=== PATIENT | male | born 1970 | race Caucasian/White ===

== ENCOUNTER → 2017-10-30 13:05 | Outpatient (CLI) | payer OTHER, SELFPAY ==
--- NOTE | 2017-10-30 13:14 | RAD_ITS ---
STUDY: X-RAY - LEFT SHOULDER REASON FOR EXAM: Left shoulder pain. TECHNIQUE: 4 view(s) of the shoulder. COMPARISON: None. FINDINGS: Normal glenohumeral articulation. Normal acromioclavicular joint with incidental vacuum phenomenon in the joint. Normal acromion. Normal humeral head and visualized proximal humerus. The soft tissue structures are unremarkable. Normal visualized pulmonary apex. RAD/Shoulder min 2 Views IMPRESSION: Unremarkable x-ray examination of the left shoulder. Electronically Signed: Terrance Andrew MD at 14:21 EDT Tel , Service support ,
--- NOTE | 2017-10-30 13:14 | RAD_ITS ---
STUDY: X-RAY - CERVICAL SPINE REASON FOR EXAM: Male, 47 years old. Left shoulder pain TECHNIQUE: 5 view(s) of the cervical spine were obtained. COMPARISON: None FINDINGS: Normal anterior atlantoaxial articulation. Normal odontoid process. There is straightening of the normal cervical lordosis. There is multi-level endplate spondylosis. There is multi-level degenerative disc disease with multilevel disc space narrowing. There is multi-level osseous foraminal stenosis. The soft tissue structures are unremarkable. There is no demonstrated fracture of the cervical spine. RAD/Cerv Spine 4 or 5 Views IMPRESSION: No acute abnormality. Moderate multilevel degenerative changes. Electronically Signed: Andre Bianchi MD at 19:10 EDT , Service support ,
== END ==
PROVIDERS: Family Provider Family Medicine; PCP Family Medicine; Visit Provider Family Medicine
DX: S44.90XA Injury of unspecified nerve at shoulder and upper arm level, unspecified arm, initial encounter (principal)
CPT/HCPCS: 72050; 73030

== ENCOUNTER → 2017-11-13 07:02 | Outpatient (CLI) | payer OTHER, SELFPAY ==
--- NOTE | 2017-11-13 07:16 | MRI_ITS ---
STUDY: MRI LEFT BRACHIAL PLEXUS WITHOUT CONTRAST REASON FOR EXAM: Male, 47 years old. Neuropraxia left upper extremity TECHNIQUE: Standardized orthogonal imaging in all three planes were obtained with fat water weighted pulse sequences. The study was performed without gadolinium enhancement. COMPARISON: None. FINDINGS: No demonstrated abnormality in the course of the roots, trunks, divisions or cords of the brachial plexus. There is no demonstrated neural enlargement or neural edema of the visualized brachial plexus. Normal visualized subclavian artery and vein. Normal muscles of the rotator cuff. . Degenerative changes of both acromioclavicular joints. A metallic tack is in the right femoral head. Both glenohumeral articulations are normal. There are degenerative changes C4-C5 C5-C6 and C6-C7 disc spaces. Normal visualized pulmonary apex. MRI/Chest without Contrast IMPRESSION: No evidence of any brachial plexopathy. Degenerative changes of the acromioclavicular joints. Degenerative changes at C4-C5, C5-C6 and C6-C7. No fractures Electronically Signed: Inderjit Harding MD at 6:14 EDT Tel , Service support ,
--- NOTE | 2017-11-13 07:43 | RAD_ITS ---
STUDY: X-RAY - ORBITS REASON FOR EXAM: Male, 47 years old. This study is being performed as a clearance examination for exclusion of orbital metal, prior to the performance of an MRI examination. TECHNIQUE: 2 view(s) of the orbits were obtained. COMPARISON: None. FINDINGS: Normal bilateral orbits without a metallic orbital foreign body. Normal visualized facial bones. Normal paranasal sinuses. The soft tissue structures are unremarkable. RAD/Orbits for Foreign Body IMPRESSION: No demonstrated metallic orbital foreign body. The patient is cleared for an MRI examination. Electronically Signed: Mason Houston MD at 8:09 EDT Tel [phone], Service support ,
== END ==
PROVIDERS: Family Provider Family Medicine; PCP Family Medicine; Visit Provider Family Medicine
DX: S44.90XA Injury of unspecified nerve at shoulder and upper arm level, unspecified arm, initial encounter (principal)
CPT/HCPCS: 70030; 71550

== ENCOUNTER → 2021-09-12 | Outpatient (CLI) | payer BC, SELFPAY ==
--- NOTE | 2021-09-12 12:37 | RAD_ITS ---
STUDY: X-RAY - LUMBAR SPINE REASON FOR EXAM: Male, 51 years old. BACK PAIN TECHNIQUE: 5 view(s) of the lumbar spine were obtained. COMPARISON: None FINDINGS: There is straightening of the normal lumbar lordosis. There is no substantial scoliosis. There is a normal alignment of the vertebrae. . Mild degree of disc space narrowing and spondylosis at the L4-L5 and L5-S1 levels. There is mild atherosclerotic calcification of the abdominal aorta without a demonstrated aneurysm. RAD/L/S Spine Min 4 Views IMPRESSION: Mild degree of disc space narrowing and spondylosis at the L4-L5 and L5-S1 levels. Straightening of the normal lumbar lordosis. Electronically Signed: Mason Houston MD at 13:52 EDT ,
== END | disposition home or self-care (01) ==
PROVIDERS: PCP Family Medicine; Referring Provider Family Medicine; Visit Provider Family Medicine
DX: M54.9 Dorsalgia, unspecified (principal)
CPT/HCPCS: 72110

== ENCOUNTER → 2021-10-11 | Outpatient (CLI) | payer BC, SELFPAY ==
--- NOTE | 2021-10-11 09:24 | RAD_ITS ---
STUDY: X-RAY - ORBITS REASON FOR EXAM: Male, 51 years old. Foreign body TECHNIQUE: JUAREZ view(s) of the orbits were obtained. COMPARISON: 11/13/2017. FINDINGS: Normal bilateral orbits without a metallic orbital foreign body. Normal visualized facial bones. Normal paranasal sinuses. The soft tissue structures are unremarkable. RAD/Orbits for Foreign Body IMPRESSION: No demonstrated metallic orbital foreign body in the 2 provided Juarez'' view and unchanged when compared to 11/13/2017. The patient is cleared for an MRI examination. Electronically Signed: Hitesh Mims MD at 9:37 EDT ,
== END | disposition home or self-care (01) ==
LOC: MTRAD 09:21
PROVIDERS: PCP Family Medicine; Referring Provider Family Medicine; Visit Provider Family Medicine
DX: M99.53 Intervertebral disc stenosis of neural canal of lumbar region (principal)
CPT/HCPCS: 70030

== ENCOUNTER → 2022-06-14 | Outpatient (CLI) | payer BC, SELFPAY ==
--- NOTE | 2022-06-14 09:45 | RAD_ITS ---
INDICATION: R HIP PAIN EXAMINATION/TECHNIQUE: X-RAY - XR Right Hip Unilateral with Pelvis when performed; 3 Views COMPARISON: None. FINDINGS: PELVIC BONES: No displaced fracture, destructive or sclerotic lesions. Note that overlapping bowel shadows may however obscure fine detail. Sacroiliac joints are unremarkable. No widening of the pubic symphysis. HIPS: The articular structures are unremarkable. No displaced fracture seen in this frontal view. SOFT TISSUES: No soft tissue swelling or gas. RAD/HIP, UNI W/ Pelvis 2-3 Views IMPRESSION: No evidence of displaced pelvic or hip fracture. Electronically Signed: John Lima DO at 23:18 EDT Reading Location ID and State: [facility] / [place] Tel [phone], Service support ,
== END | disposition home or self-care (01) ==
LOC: RAD 09:38
PROVIDERS: PCP Family Medicine; Referring Provider Anesthesiology Pain Medicine; Visit Provider Anesthesiology Pain Medicine
DX: M25.551 Pain in right hip (principal)
CPT/HCPCS: 73502

== ENCOUNTER 2023-07-14 07:07 | Outpatient (CLI) | payer BC, SELFPAY ==
--- NOTE | 2023-07-14 07:17 | MRI_ITS ---
STUDY: MRI RIGHT HIP REASON FOR EXAM: Male, 52 years old. Pain -- rule out AVN TECHNIQUE: Localizing images and coronal STIR performed. The patient was unable to tolerate further imaging. COMPARISON: X-ray June 25, 2023 FINDINGS: Normal hip joint without articular joint space narrowing. There is moderate joint effusion. Normal acetabulum. Normal labrum. There is avascular necrosis of the right femoral head with mild flattening. There is marrow edema of the femoral head and neck, series 4 images 15 through 19. Normal gluteus minimus, medius and iliopsoas tendons and distal insertions. There is no trochanteric, iliopsoas or iliopectineal bursitis. Normal superior and inferior pubic rami. Normal pubic symphysis. Normal ischial tuberosity. Normal origin of the hamstring tendons. Normal visualized iliac wing, sacroiliac joint, and sacral ala. Normal visualized soft tissue structures of the pelvis. MRI/Lower Ext Joint Only (Routine) IMPRESSION: Limited exam with only coronal STIR images. Avascular necrosis of the right femoral head with stress fracture/injury of the femoral head and neck. Electronically Signed: Jose Mcedrmott MD at 11:03 EDT ,
== END 2023-07-14 23:59 | disposition home or self-care (01) ==
LOC: MRI 07:09
PROVIDERS: PCP Family Medicine; Referring Provider Orthopaedic Surgery; Visit Provider Orthopaedic Surgery
DX: M25.551 Pain in right hip (principal)
CPT/HCPCS: 73721

== ENCOUNTER → 2023-10-25 | Outpatient (CLI) | payer BC, SELFPAY ==
--- NOTE | 2023-10-25 06:50 | CT_ITS ---
CT BILATERAL HIPS AND KNEES WITH 3-D IMAGING CLINICAL INDICATION: Templating for right MARY TECHNIQUE: Axial CT images of the bilateral lower extremity (including bilateral hips and bilateral knees) was performed without IV contrast material. Coronal and sagittal reformats were provided. The protocol utilizes one or more of the following dose reduction techniques: automated exposure control, adjustment of mA and/or kV according to patient size, and/or use of iterative reconstruction technique. RADIATION DOSAGE (If Supplied By Facility): CTDIvol = ( 12.47 ) mGy, DLP = ( 892.72 ) mGycm COMPARISON: Pelvis and right hip radiographs dated 10/03/2023. FINDINGS: Bones: There is stable mild degenerative arthrosis of the hip joints bilaterally with mild osteoarthritic spurring and subchondral cyst formation of the acetabula bilaterally. There is linear geographic and serpiginous sclerosis of the right femoral head, compatible with avascular necrosis. There is subtle flattening of the anterior-superior aspect of the right femoral head, compatible with subchondral collapse. Normal knee joints bilaterally. Osseous structures are otherwise intact without evidence of fracture or dislocation. No lytic or blastic osseous masses. Soft Tissues: The deep soft tissue structures are unremarkable. The superficial soft tissues are unremarkable without evidence of edema, hematoma, or foreign body. CT/Extremity Lower without Contra IMPRESSION: Stable mild degenerative arthrosis of the hip joints bilaterally. Avascular necrosis of the right femoral head, with subtle subchondral collapse of the anterior-superior aspect of the right femoral head. Electronically Signed: Cyrus Hopson MD at 8:08 EDT ,
== END | disposition home or self-care (01) ==
PROVIDERS: PCP Family Medicine; Referring Provider Orthopaedic Surgery; Visit Provider Orthopaedic Surgery
DX: M87.051 Idiopathic aseptic necrosis of right femur (principal)
CPT/HCPCS: 73700

== ENCOUNTER 2023-11-06 08:15 | Day surgery (SDC) | payer BC, SELFPAY ==
--- NOTE | 2023-11-02 07:27 | EKG12_ITS ---
Test Reason : PREOP Blood Pressure : / mmHG Vent. Rate : 068 BPM Atrial Rate : 068 BPM P-R Int : 148 ms QRS Dur : 076 ms QT Int : 368 ms P-R-T Axes : 071 042 033 degrees QTc Int : 391 ms Normal sinus rhythm Normal ECG Confirmed by Hunter Roth ([id number]), non linear editor KEN AZEVEDO ([id number]) on 11/05/2023 9:58:55 AM Referred By: Nelson Jenkins Confirmed By:Hunter Roth
[2023-11-02 08:38] LABS: Absolute Neutrophil Count 5.9 X10^3/uL (2.0-7.7); Basophil# 0.03 X10^3/uL; Basophil% 0.3 % (0-1); Eosinophil# 0.11 X10^3/uL; Eosinophils% 1.2 % (0-5); Hematocrit 44.5 % (40-54); Hemoglobin 14.9 g/dL (13.0-16.5); Lymphocyte % 22.5 % (19-41); Mean Corp Hgb Conc 33.5 g/dL (32-36); Mean Corpuscular Hgb 31.4 pg (27.0-32.0); Mean Corpuscular Volume 93.9 fL (80-94); Mean Platelet Vol. 10.4 fl (6.2-12.0); Monocyte# 0.81 X10^3/uL; Monocyte% 9.1 % (0-10); NRBC Flagged by Analyzer 0 % (0-5); Neutrophil % 66.5 % (47-70); Platelet Count 302 K/mm3 (150-450); RBC Distribution Width CV 12.1 % (11.6-14.6); RBC Distribution Width SD 42.2 fl (35.1-43.9); Red Blood Count 4.74 M/mm3 (4.6-6.2); White Blood Count 8.9 K/mm3 (4.4-11.0)
[2023-11-02 08:47] LABS: Prothrombin Time (Protime)PT. 13.3 SECONDS (11.7-14.9)
[2023-11-02 08:48] LABS: Partial Thromboplast Time 27.7 Seconds (24.1-36.2)
[2023-11-02 08:59] LABS: Anion Gap 5 (5-15); BUN 15 mg/dL (7-18); BUN/Creat Ratio 18.6 RATIO (10-20); Calcium,Total 9.4 mg/dL (8.5-10.1); Chloride 104 mmol/L (98-107); Creatinine, Serum 0.81 mg/dL (0.70-1.30); EST Glomerular Filtration Rate 107 mL/min (>60); Est Glom Filt Rate - Afr Amer 130 mL/min (>60); Glucose 98 mg/dL (74-106); Potassium 4.3 mmol/L (3.5-5.1); Sodium Level 136 mmol/L (136-145)
[2023-11-02 09:01] LABS: Hemoglobin A1c 5.5 % (3.8-5.6)
[2023-11-02 09:09] LABS: Magnesium 1.8 mg/dL (1.6-2.6)
[2023-11-03 11:15] LABS: Fructosamine 204 umol/L (0-285)
[2023-11-06] VITALS (16 sets, daily range): BP systolic 84–151; BP diastolic 60–122; PULSE 52–94; RESP 8–98; TEMP 35.9–36.6; O2SAT 96–100; BMI 23.1
--- NOTE | 2023-11-06 | HIP_PTH ---
PATIENT: ROGELIO YOUSSEF LOC: [facility] [place] U#:[id number] AGE/SX: 53/M ROOM: RE11/06/[address]: Dr. Nelson Jenkins DO : 1970 BED: DIS: 11/06/2023 SPEC #: [id number] RECD: 11/06/23 14:19 STATUS: EDMUNDO REWilliam #: [id number] JYOTI: 11/06/23 00:[address]: Nelson Jenkins DEPT: SURGICAL PATHOLOGY RECD BY: Norman Schreiber ENTERED: 11/06/23 14:20 SP TYPE: TOTAL HIP OTHR DR: Dr. Gen Edge MD Tissues: Hip, NOS Procedures: Decalcification bone/plaque Surgery Specimen Level IV HEADER OPERATION: Right total hip replacement robotic arm assist PRE-OP DIAGNOSIS: Avascular necrosis of right femur TISSUE SUBMITTED: Bone and tissue right hip MICROSCOPIC DIAGNOSIS Bone and tissue of right hip, total hip resection: Consistent with avascular necrosis and degenerative joint changes.. AM:mr 11/09/2023 MICROSCOPIC DESCRIPTION Slides are reviewed. GROSS DESCRIPTION Received is one container labeled with the patient's name and designated bone and soft tissue right hip. The specimen consists of a pedro femoral head (with portion of femoral neck). The femoral head measures 5.0 x 5.0 x 4.0 cm (and the femoral neck measures 1.0 cm in length.) Focal area of pitting is noted. Sections reveal a wedge shaped yellowish area underneath the pitting area measuring 3.0 x 2.05cm overlying cartilage is from the femoral head in this area. The articular surface is smooth. Also present in the specimen container are multiple irregular fragments of bone reamings and pink-yellow soft tissue measuring in aggregate 7.5 x 6.5 x 2.0 cm. Attached to the top of the femoral head is a piece of soft tissue measuring 2.0 x 1.0 x 0.3cm. Senior Manager sections are submitted in two cassettes as follows: 1 - soft tissue attached to femoral head, 2&3 - bone after decalcification. / HESHAM. 11/06/2023 TC:5 CPT: 99033, 46408
[2023-11-06] MEDS: Magnesium 2 GM for ERAS IV (08:50)
[2023-11-06] MEDS: Lactated Ringers 1,000 ML 999 ML IV (08:50)
[2023-11-06] MEDS: Scopolamine 1mg/72hr Patch 1 PATCH TD (08:51)
[2023-11-06 09:02] LABS: Bedside Glucose 102 mg/dL (74-106)
[2023-11-06] MEDS: Acetaminophen 500 MG Tablet 1000 MG PO (09:06)
[2023-11-06] MEDS: Gabapentin 600 MG Tablet PO (09:06)
[2023-11-06] MEDS: Celecoxib 200 MG Capsule 400 MG PO (09:06)
--- NOTE | 2023-11-06 09:09 | PCM.PRE.AN2 ---
ASA Classification* ASA Classification ASA Classification: 2 Assessment & Plan Anesthesia* Anesthesia Assessment Anesthesia Assessment: Discussed sedation and/or anesthesia options, risks, benefits, and alternatives with patient/parents/legal guardian/POA. Questions invited. The patient/parents/legal guardian/POA seems to understand and agrees to proceed with anesthesia plan. Reviewed the physical assessment, medical history, allergy history and patient home medications list prior to surgery/procedure/anesthetic and documented any changes. Performed airway and anesthesia risk assessments. Anesthesia Type Anesthesia Type: Spinal History Source History Obtained from:: Patient and Chart Anesthesia Focused Assessment* Temperature: 98 F Pulse Rate: 91 Blood Pressure: 125/83 Respiratory Rate: 12 Pulse Ox: 97 Oxygen Delivery Method: Room Air Airway Assessment Mouth opens: >3 cm Mallampati Score: II Teeth Condition: Intact Neck Range of motion (ROM): Full ROM Focused Labs Anesthesia Preop lab: CBC WBC 8.9 K/mm3 (4.4-11.0) 11/02/23 07:50 RBC 4.74 M/mm3 (4.6-6.2) 11/02/23 07:50 Hgb 14.9 g/dL (13.0-16.5) 11/02/23 07:50 Hct 44.5 % (40-54) 11/02/23 07:50 Plt Count 302 K/mm3 (150-450) 11/02/23 07:50 CHEMISTRY Potassium 4.3 mmol/L (3.5-5.1) 11/02/23 07:50 Sodium 136 mmol/L (136-145) 11/02/23 07:50 Magnesium 1.8 mg/dL (1.6-2.6) 11/02/23 07:50 BUN 15 mg/dL (7-18) 11/02/23 07:50 Creatinine 0.81 mg/dL (0.70-1.30) 11/02/23 07:50 Glucose 98 mg/dL (74-106) 11/02/23 07:50 POC Glucose 102 mg/dL (74-106) 11/06/23 08:42 COAG PT 13.3 SECONDS (11.7-14.9) 11/02/23 07:50 Pre-Assessment Diagnosis/Proposed Procedure Planned Operative Procedure(s): (R) ERAS, Right Total Hip Replacement Robotic Arm Assisted Anesthesia History Anesthesia History - central sterilization technician: Anesthesia History - central sterilization technician Hx Hospitalization No 10/24/23 10:21 Any Problems With Anesthesia No 10/24/23 10:21 Cholinesterase deficiency No 10/24/23 10:21 You/Your Family Experience No 10/24/23 10:21 fever (hyperthermia) with Relationship Recent Exposure to Contagious No 11/06/23 09:02 Disease Does patient have nerve No 10/24/23 10:21 stimulator Patient instructed to have device shut off --Does patient have Pacemaker No 11/06/23 09:02 or ICD? When Was Last Pacemaker Check QUESTION #4 FULL TEXT: You/Your Family Experience fever (hyperthermia) with Anesthesia Last Oral Intake Last Oral intake: Last Oral Intake NPO since 07:30 11/06/23 09:02 Meds taken in AM with sips of No 11/06/23 09:02 water? Meds patient instructed to take am of surgery Any additional information?: Yes NPO since: 07:30 (Patient had some of his Ensure at 7:30 AM.) PONV PONV - central sterilization technician: PONV - central sterilization technician Female No 10/24/23 10:21 HX of Motion Sickness No 10/24/23 10:21 HX of N/V After Surgery No 10/24/23 10:21 Non-Smoker No 10/24/23 10:21 Duration of Surgery greater Yes 10/24/23 10:21 than 60 minutes Number of Risk Factors 1 10/24/23 10:21 PONV Score Low Risk 10/24/23 10:21 Height & Weight Height & Weight: Anesthesia: Height & Weight Height 5 ft 8 in 11/06/23 09:02 Weight: 69 kg 11/06/23 09:02 Body Mass Index (BMI) 23.1 11/06/23 09:02 Respiratory Assessment Respiratory Assessment - central sterilization technician: Respiratory Tract Infection Hx - central sterilization technician Hx Respiratory Tract Infection No 10/24/23 10:21 STOP Sleep Apnea STOP Sleep Apnea - central sterilization technician: STOP Sleep Apnea - central sterilization technician Hx Hypertension No 10/24/23 10:21 Hx Sleep Apnea No 10/24/23 10:21 CPAP BIPAP Do you snore loudly (louder No 10/24/23 10:21 than talking or can be heard Do you often feel tired/ No 10/24/23 10:21 fatigued/ sleepy during daytime? Has anyone observed you stop No 10/24/23 10:21 breathing during sleep? STOP Results Negative 10/24/23 10:21 QUESTION #5 FULL TEXT : Do you snore loudly (louder than talking or can be heard through closed doors)? 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 Specify any problems Hx of Preganancy in last 3 N/A 10/24/23 10:21 Months Nurse Filling Out Transfusion NBUCHER 10/24/23 10:21 & Questions: Date: 10/24/23 10/24/23 10:21 Time: 10:22 10/24/23 10:21 Patient unable to answer at this time (ie. confused, unrespo /Reproduction History /Reproductive History - central sterilization technician: /Reproductive Hx- central sterilization technician Hx Now No 10/24/23 10:21 Gestational Age (in weeks): EDC: Hx Hx Para Hx Section SAB No 10/24/23 10:21 Active Medications Active Medications: Current Medications Generic Name Dose Route Start Last Admin Trade Name Freq PRN Reason Stop Dose Admin Acetaminophen 1,000 mg 11/06/23 10:55 11/06/23 09:06 Acetaminophen 500 Mg Tablet PO 11/06/23 10:56 1,000 mg X1 ONE Administration Celecoxib 400 mg 11/06/23 10:55 11/06/23 09:06 Celecoxib 200 Mg Capsule PO 11/06/23 10:56 400 mg X1 ONE Administration Dexamethasone Sodium Phosphate 10 mg 11/06/23 10:55 Dexamethasone 10 Mg/Ml Vial IV 11/06/23 10:56 X1 ONE Gabapentin 600 mg 11/06/23 10:55 11/06/23 09:06 Gabapentin 600 Mg Tablet PO 11/06/23 10:56 600 mg X1 ONE Administration Lactated Ringer's 1,000 mls @ 999 mls/hr 11/06/23 10:55 11/06/23 08:50 IV 11/06/23 11:55 999 mls/hr .Q1H1M NELIA Administration Cefazolin Sodium 2 gm/ Sodium 110 mls @ 150 mls/hr 11/06/23 10:55 Chloride IV 11/06/23 11:38 PREOP ONE Tranexamic Acid 2,000 mg/ 120 mls @ 660 mls/hr 11/06/23 10:55 Sodium Chloride IV 11/06/23 11:05 X1 ONE Lactated Ringer's 1,000 mls @ 125 mls/hr 11/06/23 10:55 IV 11/06/23 18:54 .Q8H NELIA Magnesium Sulfate 2 gm/ 104 mls @ 208 mls/hr 11/06/23 10:55 11/06/23 08:50 Dextrose IV 11/06/23 11:24 208 mls/hr X1 ONE Administration Insulin Human Lispro 1 - 6 unit 11/06/23 10:55 Insulin Lispro 100 Unit/Ml Insuln.Pen SC Q4H PRN PRN BG>/= 180, SEE PROTOCOL Protocol Scopolamine HBr 1 patch 11/06/23 10:55 11/06/23 08:51 Scopolamine 1mg/72hr Patch TD 11/06/23 10:56 1 patch X1 ONE Administration PFSH Medical History Wears glasses Alcohol use Marijuana use Crutches as ambulation aid Electronic cigarette use Former smoker Acute arthritis Home Medications ?Medication ?Instructions ?Recorded ?Last Taken ?Type NK 10/24/23 Unknown History Allergy/AdvReac Type Severity Reaction Status Date / Time oxaprozin (From Daypro) Allergy Bleeding Verified 11/06/23 09:01 Surgical History History of wisdom tooth extraction H/O arthroscopy of shoulder Social History Smoking Status: Former smoker Tobacco: How many years used: 15 alcohol intake: current alcohol intake frequency: 0-2 drinks per day Alcohol type: beer Review of Systems (Anesthesia) ROS Narrative System reviewed and no additional complaints, except as documented.
--- NOTE | 2023-11-06 09:26 | PCM.HP.BLA ---
History and Physical Date of Admission: 11/06/23 [facility] [address] [place] [address] OFFICE VISIT Date of Service: 10/03/23 MR#: [id number] Acct: [id number] Name: ROGELIO YOUSSEF Rep #: [id number] : 1970 Provider: Dr. Nelson Jenkins, Age/Sex: 53/M Location[place] [facility] [place] Status: Signed Intake Vital Signs 06/25/2407:53 Height 5 ft 8 in Intake Visit Reasons: RIGHT HIP Is patient in pain?: Yes Allergies oxaprozin (From Daypro) Allergy (Verified 10/03/23 09:02) Bleeding Medications ?Medication ?Instructions ?Recorded ?Confirmed ?Type alendronate 70 mg tablet 70 mg PO QWEEK #12 tabs 07/20/23 10/03/23 Rx PFSH Medical History Acute arthritis Surgical History H/O arthroscopy of shoulder Social History Smoking Status: Current every day smoker Tobacco: How many years used: 15 alcohol intake: current alcohol intake frequency: 0-2 drinks per day Alcohol type: beer HPI RIGHT HIP Details: This documentation accurately reflects the service provided and the decisions made by me, Dr. Nelson Jenkins, 10/03/23 0750. Part of today?s visit was documented by [ ], acting as scribe. ROGELIO YOUSSEF is a 53 year old M here today for right hip AVN. 07/20/2023 visit: patient has known AVN of riht hip; MRI was reviewed with the patient he did have early stage IV as there was flattening of the femoral head with a large lesion size he wished to proceed at that time with nonweightbearing with crutches NSAIDs and bisphosphonates we did discuss total hip arthroplasty as a likely outcome he was given Celebrex as he had a history of GI upset from other NSAIDs and bleeding gums from oxaprozin. 08/29/23 visit: Patient had been nonweightbearing since the previous visit continues to use crutch. When he puts weight on the hip he feels his pain in the same spot. He continues Celebrex and alendronate X-rays were reviewed without significant change he has had some improvement with protected weightbearing however there are still significant pain once again we reviewed surgical option of total hip arthroplasty. He wished to proceed with another 6 weeks of nonweightbearing treatment with continued NSAID and alendronate. With plans that if he did not improve to discuss total hip arthroplasty as a neck step 10/03/2023 visit: Patient continues to have right hip pain. Patient notes that he has increased pain with changing directions. Patient notes that he has pain into his groin and posterior hip. He has been using crutches until about 3 days ago. Patient notes that he was doing well until he started weightbearing. Patient denies any pain medication and he has stomach cramps with pain medication. He smokes marijuana every once in awhile. He notes that every once in awhile he has right foot numbness. Ortho Exam General General: Yes no acute distress Neurologic: Yes alert and Yes oriented x3 Psychologic: Yes reasonable and appropriate Right Hip Skin: Yes CDI, No Ecchymosis, No soft tissue swelling and No Erythema internal rotation @90 degree flexion: 18 degrees external rotation @90 degree extension: 70 degrees Special Tests: No hyperflexion normal, Yes C sign, Yes TTP Greater sciatic notch, Yes FADER and Yes Illiotibial band tenderness Homans Sign: No HIP: pain in upper groin & greater sciatic notch He does have some mild trochanteric tenderness. IR with pain ER with reproducable pain Reproducible pain with resisted hip flexion with some weakness passive knee extension also causes reproduction of his pain 5/5 plantarflexion dorsiflexion 2/4 pedal pulse Intact sensation to light touch throughout the extremity Head: Normocephalic Atraumatic Chest: symmetrical rise, non-labored breathing, no audible wheeze Abdomen: no guarding, non-rigid Supplemental Info 10/03/2023 x-ray right hip: Unchanged 07/14/2023 MRI right hip: Avascular necrosis of the right femoral head with flattening, lesion is large, stage IV Ficat 06/25/2023 x-ray right hip: Preserved joint space no acute findings 06/14/2022 x-ray right hip: Preserved joint space no acute findings 10/12/2021 MRI report lumbar spine [facility] care: L5 transitional lumbosacral vertebra scattered hemangiomas, L4-L5 generalized disc bulge with a small inferiorly marginated central protrusion and facet arthropathy without canal stenosis mild bilateral foraminal stenosis, L5-S1 facet arthropathy Coding Level of Care Code Off vis,est,level 3 Diagnoses Avascular necrosis of right femur M87.051 Laterality: right Assessment and Plan Assessment and Plan (1) AVN of femur: Status: Acute Qualifiers: Laterality: right Qualified Code(s): M87.051 - Idiopathic aseptic necrosis of right femur Orders: Orders HIP, UNI W/ Pelvis 2-3 Views Today M87.051 - Idiopathic aseptic necrosis of right femur Plan Spoke with the patient about his options- continue with conservative treatment or a total hip arthroplasty. Patient wanted to proceed with a total hip arthroplasty. He will have hip precautions strictly for 3 months although he will need to be mindful with his physical job, lifelong. He should stop the alendronate at this time. He will be on oxycodone and tylenol post op. Patient will be on blood thinners post op to prevent DVT. He will need a CT scan for the makoplasty. Patient should stop drinking and vaping prior to surgery. He will be off work for 3 months. He will be same day surgery. Risks, benefits and alternatives of surgery reviewed including but not limited to bleeding, infection, nerve, foot drop, artery and/or tissue damage, fracture, VTE, leg length discrepancy, dislocation, need for hip precautions, continued pain and expected post-operative course. Follow up for 2 week post op or sooner if pain, swelling, numbness or associated symptoms, or concerns develop. All questions answered. Patient in agreement of plan. 10/03/23 0948 <Electronically signed by Nelson Jenkins DO> Date Nelson Jenkins DO Cosigner Signature: Date (if applicable) I have examined the patient and the H&P has been reviewed. There are no clinical changes since date of exam.
[2023-11-06] MEDS: Cefazolin 2 GM in 0.9% Normal Saline (100mL Bag) 100 ML IV ×2 (09:30→15:12)
[2023-11-06] MEDS: TRANEXAMIC ACID 2,000 MG in 0.9% Normal Saline (100mL Bag) 100 ML 660 MG IV (09:50)
[2023-11-06] MEDS: dexAMETHasone 10 MG/ML Vial IV (09:50)
--- NOTE | 2023-11-06 11:50 | PCM.OP.BLANK ---
Operative Report Date of Procedure: 11/06/23 Preoperative diagnosis: Right hip AVN Postoperative diagnosis: Same Procedure: CT-guided Makoplasty assisted right total hip arthroplasty Implants: Loren Accolade II stem size 4, 127 degree neck angle -5 head neck length 52 mm Trident II acetabular shell with 40 mm cancellous screw 36 mm ceramic head, 10 degree Trident X3 polyethylene insert. Anesthesia: Spinal EBL: 175 cc Complications: None Condition: Stable to PACU Nerve Specialist Cristian England. My physician anesthesiologist assistant certified was a vital part of this case. He was important in appropriate retraction during the case, and protection of soft tissues during procedure. His intimate knowledge of the case and my steps aided in safe and expedient completion of the procedure as well as appropriate position of the extremity during the case. He was also vital in assisting with closure under my direct supervision. Indication for procedure: This is a 53-year-old male who has had long-standing AVN of his right hip who has failed conservative treatment and wished to undergo total hip arthroplasty. We did discuss operative versus nonoperative intervention including risks of bleeding, infection , nerve artery tissue damage, need for further surgery, fracture, leg length discrepancy dislocation blood clot and need for postoperative physical therapy and postoperative expectations. An informed consent was signed. Procedure: Patient was met in the preoperative holding area once again the operative extremity was identified by both patient and physician and was marked. Patient was met by anesthesia . Anesthesia was started. patient was then positioned in the lateral decubitus position on a well-padded pegboard with an axillary roll. All bony prominences were checked and padded. The patient was prepped and draped in the usual sterile fashion. A timeout was called to ensure the proper patient procedure and extremity were being contemplated. Anatomic landmarks were palpated and marked for a standard posterior lateral approach. Prior to this the ASIS was palpated and 3 fingerbreadths proximal to this 3 pins were placed at a 45 degree angle into the iliac crest with good purchase, stab incisions were made with a 15 blade into the skin prior to placement. The Makoplasty array was then secured. A 10 blade scalpel was used to make a posterior incision through the skin and subcutaneous tissue. retractors were used and electrocautery was used to maintain meticulous hemostasis and dissect full-thickness flaps until the gluteal fascia was reached. The gluteal fascia was incised in line with the gluteal fibers. The bursal tissue was then freed from the underside and a Charnley retractor was placed. The femoral trochanteric checkpoint was placed and leg length was assessed using the trochanteric checkpoint and an EKG lead that was placed on the knee prior to prepping the leg .the fat pad was then elevated off of the external rotators with electrocautery and the external rotators were dissected off of the greater trochanter including the piriformis and were tagged with #1 Ethibond for later repair. The joint capsule opened with posterior trapdoor technique. The hip was surgically dislocated. The measurement on the preoperative CT from the top of the lesser trochanter to the femoral neck cut was marked Hohmann was placed around the lesser trochanter. A neck cutting guide was used to naheed the neck with a Bovie and an oscillating saw was used complete the femoral neck cut. The femoral head was then removed and sized. We then turned our attention to the acetabulum. A Bovie was used to make a perforation in the anterior joint capsule and a Parsons retractor was placed this was repeated in the 6 o'clock position and a wide sona was placed there. With a long handled knife the labral and pulvinar tissue were removed. We then registered the acetabulum with the pointing array and confirmed our landmarks. Once the socket was thoroughly prepared and labral tissue and pulvinar was removed we single reamed with the robotic arm. We then used the robotic arm to position the acetabular implant and impacted it into place under robotic guidance. We then proceeded to place a posterior superior screw by drilling first measuring and inserting the screw. We then inserted a trial liner. And turned our attention back to the femur at this point a femoral elevator was used. As well as a pointed wide Hohmann around the lesser trochanter and a Hohmann to help retract the gluteus medius. A box chisel was used to remove excess lateral neck followed by a canal finder and a lateralizing reamer. This was followed by sequential broaches. Attention was made of the version within the canal based on preoperative templating. Once the final broach was seated we then trialed reduced the hip it was determined that a 127 degree neck angle with a -5 neck length was the appropriate size. Of note he was 6 mm long on the operative side preoperatively we then checked stability with shuck testing as well as flexion and internal rotation. then proceeded with hip extension and checked leg lengths at the knees and heels as well as with the trochanteric checkpoint and knee EKG lead. At this point trials were removed. A liner was inserted to the cup. The femoral stem was inserted. We re-trialed and then proceeded to impact the femoral head onto the Mark taper. We then surgically reduce the hip check stability again and leg lengths and were satisfied. Betadine rinse was allowed to sit for 5 minutes while everyone changed their gloves. Thorough irrigation was performed. Followed by closure of the external rotators with #2 FiberWire followed by closure of gluteal fascia with #1 Ethibond. 0 Vicryl fat stitches and 2-0 Vicryl subcutaneous stitches and keturah in the skin. Keturah were placed in the skin pin sites over the iliac crest and dressed with a Mepilex dressing. The main incision was dressed with a Mepilex ag dressing and an abduction pillow was placed. Patient tolerated the procedure well there was no intraoperative complications all counts were correct and the patient was brought back to the PACU in stable condition
--- NOTE | 2023-11-06 11:52 | EX.PCM.DISCH ---
Discharge Instructions Diet Discharge Diet: No restrictions Activity Weight Bearing Status: Full weight bearing Dressing / Incision Call your doctor if you observe: Shortness of breath and Chest pain Additional Dressing/Incision Instructions:: Do not shower 72hrs. Begin daily showering warm water antibacterial soap postop day #3( 72hrs Post-operatively) and then daily. Leave the dressing on for 72 hours postoperatively then may remove prior to first shower and change dressing daily after this until no drainage for 2 consecutive days then may leave open to air. Follow hip precautions that were reviewed in hospital. Wear compression stockings, may remove at night. Start physical therapy as directed in hospital. Follow prescriptions instructions do not take any other pain medication or differ dosing without consulting your physician. Do not take oral NSAIDs until blood thinner has been completed , then may begin the day after completion if needed . Call Dr. Jenkins's office with any concerns. Follow Up Care Please Follow Up With: Nelson Jenkins DO When: 2 weeks Test Results: Test results from this visit will be discussed in further detail at your follow-up appointment, if applicable. Discharge Plan Admission Primary Reason for Your Visit: Right total hip arthroplasty Attending Provider: Nelson Jenkins Primary Care Provider: Gen Edge Instructions Print Language: Kittitian Discharge Orders/Prescriptions Prescriptions: New acetaminophen 500 mg tablet 1,000 mg PO Q6H Qty: 90 0RF cephalexin 500 mg capsule 2,000 mg PO Q8H Qty: 8 0RF Rx Instructions: Take 4 tabs before you go to bed and 4 tabs after 5 AM morning after surgery when you wake up Eliquis 2.5 mg tablet 2.5 mg PO BID Qty: 42 0RF Rx Instructions: Begin morning after surgery. oxycodone 5 mg tablet 5 - 10 mg PO Q4H PRN (Reason: pain) 7 Days Qty: 60 0RF Other Ambulatory Orders: 12 Lead EKG (Routine) Timeframe: 20231025 Location: None Selected Ordered By: Dr. Nelson Jenkins Referrals / Follow Up: Gen Edge MD [Primary Care Provider] - Disposition Disposition (needs filled in before D/C Order can be placed): Home, Self Care
--- NOTE | 2023-11-06 12:00 | RAD_ITS ---
STUDY: X-RAY - PELVIS AND RIGHT HIP REASON FOR EXAM: Male, 53 years old. Total hip arthroplasty. Immediate postsurgical follow-up. TECHNIQUE: 2 views of the pelvis and hip. COMPARISON: October 03, 2023 FINDINGS: New right total hip arthroplasty in anatomic alignment. Expected postsurgical changes of soft tissue gas, soft tissue swelling and skin blake. . Normal left hip unchanged . RAD/Hip Min 2 Views (Portable) IMPRESSION: Uncomplicated right total hip arthroplasty. Electronically Signed: Koby Oliver MD at 15:57 EDT ,
[2023-11-06] MEDS: Lactated Ringers 1,000 ML 125 ML IV (13:13)
--- NOTE | 2023-11-06 13:45 | PCM.POST.ANE ---
Anesthesia: Postop Eval I Current Vital Signs Temperature: 96.6 F Pulse Rate: 93 Blood Pressure: 146/108 Respiratory Rate: 14 Pulse Ox: 96 Oxygen Delivery Method: Room Air Assessment Airway patent: Yes Spontaneous unlabored respirations: Yes Mental status: Awake and Calm nausea: No Vomiting: No Anesthesia Complication: No Fluid Hydration Crystalloid volume administer (ml): 1,800 Total IV fluid infused: 1,800 Progress Note Anesthesia document: Postop Eval 1 completed: Yes
[2023-11-06] MEDS: oxyCODONE 5 MG Tablet PO (15:17)
--- NOTE | 2023-11-06 17:26 | POSTOPAN2_ITS ---
Anesthesia Postop Eval I Sum Postop Eval Completion status Anesthesia document: Postop Eval 1 completed: Yes Anesthesia Postop Eval I Summary Anesthesia Postop Eval I Summary: Anesthesia Postop Eval I: Assessment Summary Airway patent Yes 11/06/23 13:46 COIN WRAPPING MACHINE OPERATOR.[email or web address] Spontaneous unlabored Yes 11/06/23 13:46 COIN WRAPPING MACHINE OPERATOR.[email or web address] respirations Mental status Awake,Calm 11/06/23 13:46 COIN WRAPPING MACHINE OPERATOR.[email or web address] nausea No 11/06/23 13:46 COIN WRAPPING MACHINE OPERATOR.[email or web address] Vomiting No 11/06/23 13:46 COIN WRAPPING MACHINE OPERATOR.[email or web address] Anesthesia Postop Eval I: Fluid Summary Crystalloid volume administer 1,800 11/06/23 13:46 COIN WRAPPING MACHINE OPERATOR.[email or web address] (ml) Colloids volume administered ( ml) Blood Product volume administered (ml) Total IV fluid infused 1,800 11/06/23 13:46 COIN WRAPPING MACHINE OPERATOR.[email or web address] Anesthesia Postop Eval I: Summary Notes Anesthesia Complication No 11/06/23 13:46 COIN WRAPPING MACHINE OPERATOR.[email or web address] Anesthesia Complication Comment: Post-operative progress note Anesthesia: Postop Eval II Evaluation Mental status: Awake and Calm Pain Level: 1 nausea: No Vomiting: No Complications Anesthesia Complication: No
--- NOTE | 2023-11-06 17:26 | PCM.POSTANE2 ---
Anesthesia Postop Eval I Sum Postop Eval Completion status Anesthesia document: Postop Eval 1 completed: Yes Anesthesia Postop Eval I Summary Anesthesia Postop Eval I Summary: Anesthesia Postop Eval I: Assessment Summary Airway patent Yes 11/06/23 13:46 SURGICAL SUPPLY ASSISTANT.[email or web address] Spontaneous unlabored Yes 11/06/23 13:46 SURGICAL SUPPLY ASSISTANT.[email or web address] respirations Mental status Awake,Calm 11/06/23 13:46 SURGICAL SUPPLY ASSISTANT.[email or web address] nausea No 11/06/23 13:46 SURGICAL SUPPLY ASSISTANT.[email or web address] Vomiting No 11/06/23 13:46 SURGICAL SUPPLY ASSISTANT.[email or web address] Anesthesia Postop Eval I: Fluid Summary Crystalloid volume administer 1,800 11/06/23 13:46 SURGICAL SUPPLY ASSISTANT.[email or web address] (ml) Colloids volume administered ( ml) Blood Product volume administered (ml) Total IV fluid infused 1,800 11/06/23 13:46 SURGICAL SUPPLY ASSISTANT.[email or web address] Anesthesia Postop Eval I: Summary Notes Anesthesia Complication No 11/06/23 13:46 SURGICAL SUPPLY ASSISTANT.[email or web address] Anesthesia Complication Comment: Post-operative progress note Anesthesia: Postop Eval II Evaluation Mental status: Awake and Calm Pain Level: 1 nausea: No Vomiting: No Complications Anesthesia Complication: No
== END 2023-11-06 16:08 | disposition home or self-care (01) ==
LOC: SDC 08:16 → AC 08:18
PROVIDERS: Anesthesiology; PCP Family Medicine; Referring Provider Orthopaedic Surgery; Visit Provider Orthopaedic Surgery
PROC: 8E0Y0CZ Robotic Assisted Procedure of Lower Extremity, Open Approach (ICD-10-PCS; CPT 27130; principal; 2023-11-06 10:25)
DX: M87.051 Idiopathic aseptic necrosis of right femur (principal); F12.10 Cannabis abuse, uncomplicated; F17.200 Nicotine dependence, unspecified, uncomplicated; Z79.1 Long term (current) use of non-steroidal anti-inflammatories (NSAID)
CPT/HCPCS: 27130; 01214; 36415; 73502; 80048; 82962; 82985; 83036; 83735; 85025; 85610; 85730; 86850; 86900; 86901; 87081; 88305; 88311; 93005; 97162; C1713; C1776; J7120; J2405

== ENCOUNTER 2024-02-01 09:00 | Outpatient (RCR) | payer BC, SELFPAY ==
--- NOTE | 2023-11-12 11:56 | HP.PTEVAL ---
Patient's Visit Information Visit Information Visit Information: ROGELIO YOUSSEF is a 53 year old M referred to Physical Therapy by Dr. Nelson Jenkins DO with a diagnosis of R MARY DOS: 11/07/23. Date of Evaluation: 11/12/23 Physical Therapist: German Carlos DPT Visit Plan Frequency: 2x /Week Duration: 6 Weeks Plan: Start with HS stretching, edema control of RLE. Progressive walking. Add in functional mobility/strengthening as tolerated. Focus on getting increased WBing on RLE then progressing away from crutches. Subjective Subjective: Pt. is here today for his initial evaluation with diagnosis of R MARY DOS: 11/07/23. Pt. reports having AVN and ultimately had to have a R MARY. Pt. reports having increased pain, but is doing okay. He is walking with axillary crutches with good tolerance. Not a ton of wt. bearing through his RLE. Pt. is also having difficulty with sleeping secondary to pain and not comfortably sleeping on his back. Pt. denies N/T. He reports doing his HEP without issues. He has not been wearing his TEDs due to not fitting. I asked him to follow up with physician to get another pair. 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 Pt. is hopeful to reduce symptoms and increase mobility in order to get back to all work related activities without limitations. Pain R hip: Pain Intensity (Out of 10): 7 Pain Intensity Range: 4 and 8 Objective Objective: POSTURE: Pt. has increased L sided wt. shift in stance. Pt. tends to off load RLE when able. He is able to bear wt. well, but has increased pain and therefore limits time in R clint. PALPATION: Pt. has good healing incision. No signs of infection. He does have some edema throughout LLE. No calf pain, negative Homans sign. I suspect his is dangling his legs throughout the day rather than propping up. I educated him on this as well he reports understanding. He is not wearing his stockings due to being too small. I referred him to his physician off next door to see if he could get a new pair. 1 calf girth difference. 1.75 4inch above patellar girth difference. MMT: RLE: ankle 5/5 throughout; knee: ext 13.5#, flexion 11.1#, hip flexion 0# LLE: ankle 5/5 throughout; knee: ext 40.9#, flexion 19.3#. hip: flexion 21.8# TU.3sec with crutches 30 sec sit to stand rep test: 4 from elevated table. GAIT: pt. ambulates with crutches with good safety. He tends to have minimal WBing through his RLE during stance phase. This did improve with VC/TCing. Pt. noted slight increase in symptoms. Balance/Special Test Scores WOMAC Total Score: 96 WOMAC Percentatge: 0 Goals Goal 1:: LTG: Pt. to be I with HEp. Goal Time Frame: 4-6 Weeks Goal 2:: STG: Pt. to sleep throughout the night without increase in symptoms. Goal Time Frame: 2-4 Weeks Goal 3:: LTG: Pt. to have symmetrical calf and thigh girth measurements indicating decreased RLE edema. Goal Time Frame: 4-6 Weeks Goal 4:: LTG: Pt. to have normal gait pattern without use of AD. Goal Time Frame: 4-6 Weeks Goal 5:: LTG: Pt. to complete TUG with time less than 10seconds. Goal Time Frame: 4-6 Weeks Goal 6:: LTG: Pt. to have symmetrical strength between BLEs allowing for increased ease of work activities. Goal Time Frame: 4-6 Weeks Rehabilitation Potential Physical Therapy Diagnosis: Pt. has signs and symptoms consistent with R MARY with DOS: 11/07/23. Pt. has marked hypomobility, weakness, difficulty walking and increased pain. He would benefit from PT in order to get back to all recreational and work activities without limitations. Rehabilitation Potential: Excellent Anticipated Interventions Patient/Client Instruction: Educate patient on: Condition, Plan of Care, Risk Factors and Benefits of Fitness Program For the Purpose of:: To improve decision making, To facilitate caregiver knowledge, To improve self management, To prevent re-injury, To improve ability to perform tasks related to life management and To improve tolerance to ADL's Therapeutic Exercise to Include: Strength training, Power training, Balance training, Postural training, Flexibilty training, Gait and locomotor training, Passive ROM and Active ROM For the Purpose of:: To decrease pain, To increase ROM, To improve nutrient delivery to tissue, To increase oxygenation perfusion, To improve muscle performance and motor function, To improve ability to perform ADL's, To increase tolerance to activity/condition/position, To improve health of tissue, To decrease soft tissue restriction and To increase flexibility/ROM Manual Therapy Techniques to Include: Soft tissue mobilization Comment: IASTM for soft tissue pain For the Purpose of:: To decrease pain, To increase ROM, To improve nutrient delivery to tissue and To increase oxygenation perfusion Cryotherapy (ice pack, ice massage): Yes Thermo therapy (hot pack): Yes For the Purpose of:: To decrease pain, To decrease swelling/inflammation and To increase ROM Text: Thank you for the opportunity to evaluate your patient. For Medicare and Medicare HMO plans, please review the plan of care and approve it. It will need to be FAXED BACK to us at [phone] for Medicare purposes. For Medicare only, by signing this I certify the plan of care. Please let me know if there are questions or concerns regarding this plan of care. Physician Signature: Date:
--- NOTE | 2023-12-14 09:04 | HP.PTREVAL ---
Re-Evaluation Intro: Dr. Nelson Jenkins, DO, It has been my pleasure to treat ROGELIO YOUSSEF over the last 9 visits for R MARY DOS: 11/07/23. Please see the progress note below for an update on the physical therapy plan of care! Subjective Subjective: Pt. reports having 1/10 pain in R hip. Pt. has some difficulty with initially lying down and with initially getting up. Pt. reports being 75%. Objective Objective/Function: ROM: R hip flexion 90deg, abd 45, ext 15deg, Slight tightness in B HS, R worse than L. MMT: R LE: hip: flexion 22.1#, abd 5# LLE: hip: flexion 39.2#, abd 25# gait: Pt. is ambulating well, stiff during the first few steps. Better pattern with increased gait. Pt. has slight R rotation of pelvis during R pre swing indicating some tightness into extension. He is a little tight with his hip extension stairs: pt. did well without use of HRs, good reciprocal pattern noted. Overall he is doing well. 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 Plan Plan Plan: Pt. to see physician next week. I do not believe he is quite ready to ready to return to work. I would like to see a bit more strength in his R leg and a little more tolerance to functional mobility over longer periods of time. Cont. to progress strengthening, especially into hip abduction. Balance/Gait/Functional tests Balance/Special Test Scores TUG Test Time Seconds: 8.3 Tug Test: <10 sec.=free mobile 30 Second Chair Rise Test Seconds: 12 6 Minute Walk Test: 1183 feet no Ad. Mild increase in R hip pain. WOMAC Total Score: 96 WOMAC Percentage: 0 Goals Goals Goal 1:: LTG: Pt. to be I with HEp. Goal Time Frame: 4-6 Weeks Goal Progress: Progressing Goal 2:: STG: Pt. to sleep throughout the night without increase in symptoms. Goal Time Frame: 2-4 Weeks Goal Progress: Progressing Goal 3:: LTG: Pt. to have symmetrical calf and thigh girth measurements indicating decreased RLE edema. Goal Time Frame: 4-6 Weeks Goal Progress: Goal Met Goal 4:: LTG: Pt. to have normal gait pattern without use of AD. Goal Time Frame: 4-6 Weeks Goal Progress: Goal Met Goal 5:: LTG: Pt. to complete TUG with time less than 10seconds. Goal Time Frame: 4-6 Weeks Goal Progress: Goal Met Goal 6:: LTG: Pt. to have symmetrical strength between BLEs allowing for increased ease of work activities. Goal Time Frame: 4-6 Weeks Goal Progress: Progressing Anticipated Interventions Anticipated Interventions Patient/Client Instruction: Educate patient on: Condition, Plan of Care, Risk Factors and Benefits of Fitness Program For the Purpose of:: To improve decision making, To facilitate caregiver knowledge, To improve self management, To prevent re-injury, To improve ability to perform tasks related to life management and To improve tolerance to ADL's Therapeutic Exercise to Include: Strength training, Power training, Balance training, Postural training, Flexibilty training, Gait and locomotor training, Passive ROM and Active ROM For the Purpose of:: To decrease pain, To increase ROM, To improve nutrient delivery to tissue, To increase oxygenation perfusion, To improve muscle performance and motor function, To improve ability to perform ADL's, To increase tolerance to activity/condition/position, To improve health of tissue, To decrease soft tissue restriction and To increase flexibility/ROM Manual Therapy Techniques to Include: Soft tissue mobilization Comment: IASTM for soft tissue pain For the Purpose of:: To decrease pain, To increase ROM, To improve nutrient delivery to tissue and To increase oxygenation perfusion Cryotherapy (ice pack, ice massage): Yes Thermo therapy (hot pack): Yes For the Purpose of:: To decrease pain, To decrease swelling/inflammation and To increase ROM Re-Evaluation Ending Re-evaluation ending: Please do not hesitate to contact me at [phone] by phone or if you have questions or concerns regarding this new plan of care! Sincerely, German Carlos DPT
--- NOTE | 2024-02-04 09:26 | HP.PTDCSUM_ITS ---
Discharge Summary D/C summary: It has been my pleasure to treat ROGELIO YOUSSEF referred by Dr. Nelson Jenkins DO, with the diagnosis of R MARY DOS: 11/07/23 for a total of 16 visit(s). Discharge Date: 02/01/24 Please see the following information for a summary of their discharge status. Subjective Subjective: Pt. reports being 97% better overall. He is going back to work next week. Pt. reports no issues, unless he is very active for longer periods of time. He has been able to get back to all fishing and recreational activities including wadding out in to river. Pt. reports being pleased with progress. Pain R hip: Pain Intensity (Out of 10): 0 Overall Improvement % Improvement: 97 Objective Objective/Function: ROM: R hip: flexion 120deg, [id number], ext 20deg, Good HS length noted. MMT 5/5 throughout BLEs. No increase in symptoms, except 4+/5 hip abduction gait: normal without Ad. STAIRS: normal with reciprocal pattern without HR. Pt. is overall doing great. He is resume all work activities next week. 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 Pt. consents. Goals Goal 1:: LTG: Pt. to be I with HEp. Goal Progress: Goal Met Goal 2:: STG: Pt. to sleep throughout the night without increase in symptoms. Goal Progress: Goal Met Goal 3:: LTG: Pt. to have symmetrical calf and thigh girth measurements brian cating decreased RLE edema. Goal Progress: Goal Met Goal 4:: LTG: Pt. to have normal gait pattern without use of AD. Goal Progress: Goal Met Goal 5:: LTG: Pt. to complete TUG with time less than 10seconds. Goal Progress: Goal Met Goal 6:: LTG: Pt. to have symmetrical strength between BLEs allowing for increased ease of work activities. Goal Progress: Goal Met Plan Plan: Pt. to be DC from PT at this point in time. D/C Information d/c sentence: If there are questions or concerns regarding this patient's physical therapy, please feel free to call me at [phone]. Thank you for the referral of this patient. Sincerely, German Chand Sipos, DPT Balance/Gait/Functional tests Balance/Special Test Scores Lower Extremity Functional Score: 74 TUG Test Time Seconds: 7.1 Tug Test: <10 sec.=free mobile 30 Second Chair Rise Test Seconds: 17 6 Minute Walk Test: 1609 feet no Ad WOMAC Total Score: 96 WOMAC Percentage: 0 Improvement % Improvement: 97
== END 2024-02-01 19:00 | disposition home or self-care (01) ==
LOC: PT 09:00
PROVIDERS: PCP Family Medicine; Referring Provider Orthopaedic Surgery; Visit Provider Orthopaedic Surgery
DX: M87.051 Idiopathic aseptic necrosis of right femur (principal)
CPT/HCPCS: 97110; 97161; 97530